=== PATIENT | female | born 1995 | race Caucasian/White ===

== ENCOUNTER 2019-09-29 01:06 | Emergency (ER) | payer SELFPAY ==
[~2019-09-29] VITALS: Ht 157.5 cm; Wt 65.8 kg
[2019-09-29 01:06] VITALS: BP 112/70
--- NOTE | 2019-09-29 01:06 | NUR ---
PT [facility] BLS. TAKEN TO BED 6
--- NOTE | 2019-09-29 01:10 | NUR ---
24 Y/O FEMALE BIB AMBULANCE. PRESENTS TO ED WITH CHIEF COMPLAINT OF ETOH INTOXICATION. EMS ARRIVED ON SCENE AT [facility]. PT WAS INTOXICATED AND UNABLE TO PROVIDE ANY VIABLE INFORMATION ABOUT WELL BEING. BRUISING ON RIGHT FACE, DENIES ANY PAIN. N/V PRIOR TO TRANSPORT AND AT HOSPITAL. PT DENIES ANY DRUG USE. PT HAS UNSTEADY GAIT DUE TO INTOXICATION. ALERT AND ORIENTED TO NAME. PT VSS. ERMD AWARE. WILL CONTINUE TO MONITOR.
--- NOTE | 2019-09-29 01:12 | NUR ---
Dr. Decker examining patient.
[2019-09-29] MEDS ORDERED: ONDANSETRON 4 MG/2 ML VIAL IVP ONE (01:15)
[2019-09-29] MEDS ORDERED: NACL 0.9% 1,000 ML IV ONE (01:15)
--- NOTE | 2019-09-29 01:25 | NUR ---
ATTEMPTED STRAIGHT CATHERIZATION. UNABLE TO GET ANY RETURN.
--- NOTE | 2019-09-29 02:48 | NUR ---
PT RETURN FROM CT
--- NOTE | 2019-09-29 05:06 | NUR ---
PT GAVE VERBAL CONSENT TO CONTACT FATHER USING SEAVIEW NUMBER . UNABLE TO REACH FATHER.
[2019-09-29 05:55] VITALS: BP 112/54
--- NOTE | 2019-09-29 05:55 | NUR ---
PT DISCHARGED WITH PAPERWORK. NO MEDICATIONS PROVIDED. EDUCATED PT REGARDING D/C DIAGNOSIS AND INSTRUCTIONS. PT VERBALIZED UNDERSTANDING OF TEACHING. TOLD PT TO FOLLOW UP WITH PCP AND WHEN TO RETURN TO ED. PT VSS. PT ABLE TO AMBULATE WITH SLOW STEADY GAIT. ALL QUESTIONS ANSWERED.
--- NOTE | 2019-10-07 12:01 | NUR ---
Late entry. Confirmed with RN that 0.9 NS 1000ml IV completed at 0245
== END 2019-09-29 05:55 | disposition home or self-care (01) ==
LOC: MED 01:06
DX: S09.90XA Unspecified injury of head, initial encounter (principal); F10.129 Alcohol abuse with intoxication, unspecified; R47.1 Dysarthria and anarthria; R11.10 Vomiting, unspecified; X58.XXXA Exposure to other specified factors, initial encounter; Y92.89 Other specified places as the place of occurrence of the external cause; Y93.89 Activity, other specified; Y99.8 Other external cause status
CPT/HCPCS: 36415; 70450; 72125; 82948; 84702; 96361; 96374; 99284; J2405

== ENCOUNTER 2019-09-29 12:01 | Emergency (ER) | payer SELFPAY ==
[~2019-09-29] VITALS: Ht 160 cm; Wt 61.2 kg
[2019-09-29 12:08] VITALS: BP 114/56
--- NOTE | 2019-09-29 12:12 | NUR ---
PT AMBULATED TO ER BED 05
--- NOTE | 2019-09-29 12:40 | NUR ---
C/O DIZZINESS/N/V X1 DAY. PT WASS D/C FROM [facility] ER THIS MORNING AFTER ETOH INTOXICATION. PT STATES SHE WAS TOLD BY HER FRIEND THAT SHE FELL AND HIT HER HEAD MULTIPLE TIMES LAST NIGHT. PT HAS ABRAISONS TO R EYEBROW AND L CHEEKBONE. PT A & O X4, SPEAKING CLEARLY, ANSWERING QUESTIONS APPROPRIATELY. PERRLA 3MM. PT DENIES LOC. 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 BED LOCKED IN LOWEST POSITION, SIDE RAIL UP X1. FRIEND AT BEDSIDE.
--- NOTE | 2019-09-29 12:45 | NUR ---
DR. IRENE AT BEDSIDE.
[2019-09-29] MEDS ORDERED: NACL 0.9% 1,000 ML IV ONE (12:51)
[2019-09-29] MEDS ORDERED: hydrOXYzine HCL 25 MG TAB PO ONE (12:55)
[2019-09-29] MEDS ORDERED: FAMOTIDINE 20 MG TAB PO ONE (12:55)
[2019-09-29] MEDS ORDERED: MECLIZINE 25 MG TAB PO ONE (12:55)
--- NOTE | 2019-09-29 13:02 | NUR ---
PT EATING FOOD BROUGHT BY HER FRIEND, VIRIDIANA'Teena BY DR. IRENE
[2019-09-29 13:28] LABS: BASOPHILS # (AUTO) 0.1 K/uL (0.00-0.22); BASOPHILS % (AUTO) 0.7 % (0.0-2.0); EOSINOPHILS # (AUTO) 0.1 K/uL (0-0.4); EOSINOPHILS % (AUTO) 0.6 % (0.0-4.0); LYMPHOCYTES # (AUTO) 2.6 K/uL (2.5-16.5); LYMPHOCYTES % (AUTO) 22.3 % (20.5-51.1); MEAN CORPUSCULAR HEMOGLOBIN 30 pg (27-31); MEAN CORPUSCULAR HGB CONC 34 g/dL (33-37); MEAN CORPUSCULAR VOLUME 89.3 fL (80-94); MONOCYTES # (AUTO) 0.7 K/uL (0.8-1.0); MONOCYTES % (AUTO) 6.2 % (1.7-9.3); NEUTROPHILS # (AUTO) 8.2 K/uL (1.8-7.7); NEUTROPHILS % (AUTO) 70.2 % (42.2-75.2); PLATELET COUNT (AUTO) 315 K/uL (140-450); RED BLOOD CELL COUNT(AUTO) 4.37 MIL/uL (4.20-5.40); RED CELL DISTRIBUTION WIDTH 12.9 % (11.6-13.7); WHITE BLOOD COUNT (AUTO) 11.6 K/uL (4.8-10.8)
[2019-09-29 15:57] VITALS: BP 120/61
--- NOTE | 2019-09-29 15:57 | NUR ---
Patient discharged with v/s stable. Written and verbal after care instructions given and explained. Patient alert, oriented and verbalized understanding of instructions. Ambulatory with steady gait. All questions addressed prior to discharge. ID band removed. Patient advised to follow up with PMD. Rx of ANTIVERT given. Patient educated on indication of medication including possible reaction and side effects. Opportunity to ask questions provided and answered.
[2019-09-29 16:00] LABS: ANION GAP 13.9 (8-16); CARBON DIOXIDE 26.7 mmol/L (21-32); POTASSIUM 3.6 mmol/L (3.5-5.1)
[2019-09-29 16:01] LABS: ALBUMIN 3.5 g/dL (3.4-5.0); CREATININE 0.7 mg/dL (0.6-1.3); TOTAL BILIRUBIN 0.3 mg/dL (0.0-1.0)
== END 2019-09-29 15:57 | disposition home or self-care (01) ==
LOC: MED 12:01
DX: S00.83XA Contusion of other part of head, initial encounter (principal); F10.129 Alcohol abuse with intoxication, unspecified; R42 Dizziness and giddiness; W18.39XA Other fall on same level, initial encounter; Y92.89 Other specified places as the place of occurrence of the external cause; Y93.89 Activity, other specified; Y99.8 Other external cause status
CPT/HCPCS: 36415; 71045; 80053; 84484; 85025; 93005; 96360; 99284; G0482; J7030; J8597; Q0092